=== PATIENT | female | born 1985 | race Two or more races ===

== ENCOUNTER 2021-09-06 22:45 | Emergency (ER) | payer MEDICARE, MEDICAID ==
[~2021-09-06] VITALS: Ht 167.6 cm; Wt 77.0 kg
[2021-09-07 00:03] LABS: CLARITY URINE CLEAR (CLEAR); COLOR URINE YELLOW (YELLOW); KETONES URINE NEGATIVE (NEGATIVE); LEUKOCYTE ESTERASE URINE NEGATIVE (NEGATIVE); NITRITE URINE NEGATIVE (NEGATIVE); OCCULT BLOOD URINE 2+ (NEGATIVE); PROTEIN URINE NEGATIVE (NEGATIVE); SPECIFIC GRAVITY URINE 1.004 (1.005-1.030); UROBILINOGEN URINE 0.2 E.U./dL (0.2-1.0)
[2021-09-07 00:15] LABS: *AMPHETAMINES SCREEN URINE NEGATIVE (NEGATIVE); *BARBITURATES SCREEN URINE NEGATIVE (NEGATIVE); *BENZODIAZEPINES SCREEN URINE NEGATIVE (NEGATIVE); *COCAINE SCREEN URINE NEGATIVE (NEGATIVE); CANNABINOID URINE SCREEN NEGATIVE (NEGATIVE); PHENCYCLIDINE URINE SCREEN NEGATIVE (NEGATIVE)
[2021-09-07 00:16] LABS: METHADONE URINE SCREEN NEGATIVE (NEGATIVE); OPIATES URINE SCREEN NEGATIVE (NEGATIVE)
[2021-09-07 00:33] LABS: BASOPHILS % 0.6 % (0.0-2.0); EOSINOPHILS % 2.7 % (0.0-5.0); HEMATOCRIT. 37.6 % (36.0-48.0); LYMPHOCYTES % 37.9 % (20.0-50.0); MEAN CORPUSCULAR VOLUME 92.7 fL (81.0-99.0); MEAN PLATELET VOLUME 7.1 fl (7.4-10.4); MONOCYTES % 7.4 % (2.0-8.0); NEUTROPHILS % 51.4 % (40.0-76.0); PLATELET 261 x1000/uL (130-400); RED BLOOD CELL COUNT 4.06 mill/uL (4.2-5.4); RED CELL DISTRIBUTION WIDTH 13.4 % (11.6-14.6)
[2021-09-07 00:40] LABS: CHLORIDE 113 mEq/L (98-107)
[2021-09-07 00:44] LABS: ETHANOL BLOOD 156 mg/dL
[2021-09-07 00:46] LABS: HCG SCREEN NEGATIVE
[2021-09-07] MEDS ORDERED: DIVALPROEX SODIUM 250MG DR TABLET PO ONE (11:00)
[2021-09-07] MEDS ORDERED: GABAPENTIN 300MG CAPSULE PO ONE (11:00)
[2021-09-07 12:45] VITALS: BP 115/77
== END 2021-09-07 14:37 | disposition home or self-care (01) ==
LOC: ER 22:45
DX: R45.851 Suicidal ideations (principal); F10.129 Alcohol abuse with intoxication, unspecified; Y90.6 Blood alcohol level of 120-199 mg/100 ml; F32.9 Major depressive disorder, single episode, unspecified; Z87.891 Personal history of nicotine dependence
CPT/HCPCS: 36415; 80053; 80305; 80320; 81003; 81025; 82962; 84703; 85025; 99291; G0480